=== PATIENT | female | born 1935 | race Caucasian/White ===

== ENCOUNTER 2019-07-21 07:36 | Emergency (ER) | payer OTHER ==
[2019-07-21 08:34] LABS: EOS % 2.8 % (0-4.5); HEMATOCRIT 37.6 % (32.4-45.2); HEMOGLOBIN 12.4 GM/dL (10.7-15.3); LYMPH % 28.7 % (8-40); MCH 29.7 pg (25.7-33.7); MEAN CELL VOLUME 89.8 fl (80-96); MEAN PLT VOLUME 7.7 fl (7.5-11.1); NEUT % 58.5 % (42.8-82.8); PLATELET COUNT 301 K/MM3 (134-434); RBC 4.19 M/mm3 (3.60-5.2); RDW 13.4 % (11.6-15.6); WHITE BLOOD COUNT 6.7 K/mm3 (4.0-10.0)
[2019-07-21 08:45] VITALS: BMI 25.2
[2019-07-21 09:05] LABS: ALBUMIN 3.2 g/dl (3.4-5.0); BILIRUBIN,TOTAL 0.4 mg/dL (0.2-1); BLOOD UREA NITROGEN 32.7 mg/dL (7-18); CALCIUM 9.2 mg/dL (8.5-10.1); CREATININE 1.3 mg/dL (0.55-1.3); POTASSIUM 4.5 mmol/L (3.5-5.1)
[2019-07-21] MEDS ORDERED: MAGNESIUM SULF 50% (8.12 MEQ/2 ML-1 GM VIAL) IVPB ONE (09:17)
[2019-07-21 09:19] LABS: INR 1.18 (0.83-1.09); PROTHROMBIN TIME (PATIENT) 13.9 SEC (9.7-13.0)
[2019-07-21] MEDS ORDERED: MAGNESIUM 1GM/D5W - 1 GM/100 ML IVPB IVPB ONE (09:23)
[2019-07-21] MEDS ORDERED: METOPROLOL TARTRATE 50 MG TABLET (FP) PO ONE (09:32)
[2019-07-21] MEDS ORDERED: METOPROLOL TARTRATE 50 MG TABLET (FP) ONE (09:36)
--- NOTE | 2019-07-21 10:07 | PDOC ---
History of Present Illness - General Chief Complaint: Chest Pain Stated Complaint: CHEST PAIN Time Seen by Provider: 07/21/19 08:12 History Source: Patient Exam Limitations: No Limitations - History of Present Illness Initial Comments: 07/21/19 10:07 84-year-old female with history of stents along with stroke presents the ED with complaints of right-sided throbbing pressure to her temporal and forehead last night at around 12 AM. Patient states was given 3 tablets which she was unsure of at around 1230 which was resolved her headache shortly thereafter. Patient states then about 2 hours after that developed midsternal chest pressure which she describes as someone sitting on her chest. Patient denied any shortness of breath nausea, dizziness, or sweating with episode. Patient also denied any visual changes with the onset of headache. Patient has no complaints presently and states was sent here by the [facility] for evaluation. Patient has no other complaints including fever, chills, abdominal pain, back pain, change in bowel pattern, or urinary complaints. Patient does state is at [facility] for rehab since she fell approximately 1 week ago and is there for short-term rehab Is this a multiple visit Asthma Patient?: No Timing/Duration: resolved prior to arrival Severity: moderate Associated Symptoms: reports: chest pain, headaches Past History - Travel Traveled outside of the country in the last 30 days: No Close contact w/someone who was outside of country & ill: No - Past Medical History Allergies/Adverse Reactions: Allergies Allergy/AdvReac Type Severity Reaction Status Date / Time No Known Allergies Allergy Verified 07/21/19 08:00 COPD: No CHF: No DVT: No - Immunization History Immunization Up to Date: Yes - Psycho Social/Smoking Cessation Hx Smoking History: Never smoked Information on smoking cessation initiated: No Hx Alcohol Use: No Drug/Substance Use Hx: No Patient Lives Alone: No Lives with/in: spouse/SO Review of Systems - Review of Systems Able to Perform ROS?: Yes Constitutional: No: Symptoms Reported HEENTM: No: Symptoms Reported Respiratory: No: Symptoms reported Cardiac (ROS): Yes: Chest Pain, Chest Tightness ABD/GI: No: Symptoms Reported : No: Symptoms Reported Musculoskeletal: No: Symptoms Reported Integumentary: No: Symptoms Reported Neurological: Yes: Headache. No: Numbness, Weakness Hematologic/Lymphatic: No: Symptoms Reported *Physical Exam - Vital Signs Last Vital Signs Temp Pulse Resp BP Pulse Ox 97.6 F 64 16 157/80 96 07/21/19 08:00 07/21/19 08:00 07/21/19 08:00 07/21/19 08:00 07/21/19 08:00 - Physical Exam General Appearance: Yes: Nourished, Appropriately Dressed. No: Apparent Distress HEENT: positive: EOMI, KIKA, TMs Normal, Pharynx Normal. negative: Pale Conjunctivae Neck: positive: Supple Respiratory/Chest: positive: Lungs Clear, Normal Breath Sounds. negative: Respiratory Distress, Accessory Muscle Use Cardiovascular: positive: Regular Rhythm, Regular Rate. negative: Murmur Gastrointestinal/Abdominal: positive: Soft. negative: Tenderness Integumentary: positive: Warm, Pale, Moist Neurologic: positive: Fully Oriented, Normal Mood/Affect, Motor Strength 5/5 ( moves all ext actively) Heart Score/ECG Review - ECG Intrepretation Rhythm: Regular Rhythm (Rate 66. Sinus rhythm with first-degree AV block.) ED Treatment Course - LABORATORY CBC & Chemistry Diagram: 07/21/19 08:27 07/21/19 08:27 - ADDITIONAL ORDERS Additional order review: Laboratory Results 07/21/19 07/21/19 07/21/19 08:27 08:27 08:27 PT with INR 13.90 H INR 1.18 H Sodium 138 Potassium 4.5 Chloride 106 Carbon Dioxide 28 Anion Gap 4 L BUN 32.7 H Creatinine 1.3 Est GFR (CKD-EPI)AfAm 43.32 Est GFR (CKD-EPI)NonAf 37.38 Random Glucose 168 H Calcium 9.2 Magnesium 1.6 L Total Bilirubin 0.4 AST 16 ALT 19 Alkaline Phosphatase 49 Creatine Kinase Troponin I Total Protein 7.0 Albumin 3.2 L 07/21/19 08:27 PT with INR INR Sodium Potassium Chloride Carbon Dioxide Anion Gap BUN Creatinine Est GFR (CKD-EPI)AfAm Est GFR (CKD-EPI)NonAf Random Glucose Calcium Magnesium Total Bilirubin AST ALT Alkaline Phosphatase Creatine Kinase 96 Troponin I < 0.02 Total Protein Albumin 07/21/19 08:27 RBC 4.19 MCV 89.8 MCHC 33.0 RDW 13.4 MPV 7.7 Neutrophils % 58.5 Lymphocytes % 28.7 Monocytes % 9.0 Eosinophils % 2.8 Basophils % 1.0 - RADIOLOGY Radiology Studies Ordered: Category Date Time Status HEAD CT WITHOUT CONTRAST [CT] Stat CT Scan 07/21/19 08:44 Taken - Medications Given in the ED: ED Medications Discontinued Medications Generic Name Dose Route Start Last Admin Trade Name Kamron PRN Reason Stop Dose Admin Magnesium Sulfate 1 gm 07/21/19 09:17 07/21/19 09:35 Magnesium Sulfate IVPB 07/21/19 09:18 1 gm ONCE ONE Administration Metoprolol Tartrate 50 mg 07/21/19 09:32 07/21/19 09:43 Lopressor - PO 07/21/19 09:33 50 mg ONCE ONE Administration Medical Decision Making - Medical Decision Making 07/21/19 09:14 Chief complaint: Patient with episodic right-sided headache at around 12 AM which resolved within the hour followed by midsternal chest pressure which also resolved within minutes. Patient with history of stroke along with hypertension and cardiac stent placement. Patient arrives asymptomatic and states was sent from [facility] for evaluation. Exam: No acute findings neuro exam normal vital signs stable EKG normal sinus rhythm with first-degree AV block Plan: Head CT, cardiac work-up, urine 07/21/19 10:16 Laboratory Tests 07/21/19 07/21/19 07/21/19 08:27 08:27 08:27 WBC 6.7 Hgb 12.4 Hct 37.6 Absolute Neuts (auto) 3.9 PT with INR INR Sodium 138 Potassium 4.5 Chloride 106 Carbon Dioxide 28 Anion Gap 4 L BUN 32.7 H Creatinine 1.3 Random Glucose 168 H Calcium 9.2 Magnesium Total Bilirubin 0.4 AST 16 ALT 19 Alkaline Phosphatase 49 Creatine Kinase 96 Troponin I < 0.02 Total Protein 7.0 Albumin 3.2 L 07/21/19 07/21/19 08:27 08:27 WBC Hgb Hct Absolute Neuts (auto) PT with INR 13.90 H INR 1.18 H Sodium Potassium Chloride Carbon Dioxide Anion Gap BUN Creatinine Random Glucose Calcium Magnesium 1.6 L Total Bilirubin AST ALT Alkaline Phosphatase Creatine Kinase Troponin I Total Protein Albumin Head CT negative for acute pathology. Patient remains asymptomatic. Patient given her 50 mg of Lopressor since she was due this morning for a.m. meds. Patient will have a BGM 1 hour after her breakfast and determine if she requires insulin since she is insulin-dependent diabetic. Patient refused chest x-ray and states additional blood work does not want and wants to sign out AMA since she does not feel the work-up is necessary despite her initial complaints. The patient is AO x3 and fully understands the possible risks of myocardial infarction. 07/21/19 11:43 Urine has been collected. Patient's repeat vital signs 117/57 heart rate 57, 02 saturation 96% with respiratory rate of 20. Patient signed AMA forms and family is here to bring patient back to [facility]. Will call the daughter Bibiana at [phone] with urine results if positive. Discharge - Discharge Information Problems reviewed: Yes Clinical Impression/Diagnosis: Headache, Chest pain Condition: Fair Disposition: AGAINST MEDICAL ADVICE - Follow up/Referral Referrals: Abby Bernal MD [Primary Care Provider] - - Patient Discharge Instructions Patient Printed Discharge Instructions: DI for Chest Pain Additional Instructions: Understand by signing your AMA forms you have assume responsibility of your health/ outcome. If you do have worsening or returning symptoms please go to the nearest ER including [facility] - Post Discharge Activity
[2019-07-21 10:48] VITALS: TEMP 98.2
[2019-07-21 11:48] VITALS: BP 117/57; PULSE 57
--- NOTE | 2019-07-21 12:42 | EKG ---
Test Reason : Blood Pressure : / mmHG Vent. Rate : 066 BPM Atrial Rate : 066 BPM P-R Int : 304 ms QRS Dur : 100 ms QT Int : 410 ms P-R-T Axes : 061 002 -48 degrees QTc Int : 429 ms SINUS RHYTHM WITH 1ST DEGREE A-V BLOCK SEPTAL INFARCT , AGE UNDETERMINED NONSPECIFIC ST ABNORMALITY ABNORMAL ECG NO PREVIOUS ECGS AVAILABLE Confirmed by DALIA PEPE MD ([id number]) on 07/21/2019 12:41:43 PM Referred By: Confirmed By:DALIA PEPE MD
[2019-07-21 12:56] LABS: URINE APPEARANCE CLEAR; URINE BILIRUBIN NEGATIVE (NEGATIVE); URINE COLOR YELLOW; URINE GLUCOSE (UA) NEGATIVE (NEGATIVE); URINE KETONE NEGATIVE (NEGATIVE)
[2019-07-21 12:57] LABS: URINE LEUK ESTERASE NEGATIVE (NEGATIVE); URINE NITRITE NEGATIVE (NEGATIVE); URINE PROTEIN NEGATIVE (NEGATIVE); URINE UROBILINOGEN 0.2 mg/dL (0.2-1.0)
== END 2019-07-21 11:54 | disposition left against medical advice (07) ==
LOC: JER 07:36
PROC: 3E033GC Introduction of Other Therapeutic Substance into Peripheral Vein, Percutaneous Approach (ICD-10-PCS; principal; 2019-07-21)
DX: R07.9 Chest pain, unspecified (principal); R51 Headache; Z95.5 Presence of coronary angioplasty implant and graft
CPT/HCPCS: 36415; 70450-TC; 80053; 81003; 82550; 82962; 83735; 84484; 85025; 85610; 93005; 93010; 96374; 99283-25

== ENCOUNTER 2019-09-10 13:01 | Emergency (ER) | payer OTHER ==
[2019-09-10 13:15] VITALS: BMI 30.6
--- NOTE | 2019-09-10 13:18 | PDOC ---
History of Present Illness - General Stated Complaint: SYNCOPY Time Seen by Provider: 09/10/19 13:17 History Source: Patient, Family - History of Present Illness Initial Comments: 09/10/19 13:45 Patient is an 84 year old female with PMH of CABG x3, heart valve replacement x2 , HTN, IDDM, TIA, rheumatic fever who presents from [facility] for AMS. Pt's son-in-law is at bedside to assist with history. [facility]. Workup after fall was negative. At baseline she has mild dementia but is alert and oriented, able to form complete sentences, ambulates with walker independently. Over the past week, pt has had several episodes of AMS where she becomes very lethargic, aphasic, and despondent. They last for varying amounts of time, but she returns to normal after a short period and does not recall these events. This morning, pt was doing well, at her normal baseline, ate breakfast and took her medications including her insulin. Around 9 :30am, she had an episode where she was completely aphasic, awake but unresponsive, her eyes drifted upward. Blood glucose was taken and was 350, BP was elevated in 180s. She was immediately brought to the ER for evaluation. In the ER, pt is awake and oriented, at her baseline. Pt feels well with no complaints, ROS negative. She has no recollection of the event this morning. 09/10/19 19:12 Past History - Past Medical History Allergies/Adverse Reactions: Allergies Allergy/AdvReac Type Severity Reaction Status Date / Time chlorpromazine Allergy Verified 09/10/19 13:15 prochlorperazine Allergy Verified 09/10/19 13:15 Home Medications: Ambulatory Orders Aspirin [ASA -] 81 mg PO DAILY 09/10/19 Atorvastatin Ca [Lipitor] 20 mg PO HS 09/10/19 Insulin Glargine,Hum.rec.anlog [Basaglar Kwikpen U-100] 27 unit SQ HS 09/10/19 Insulin Lispro 6 unit SQ TIDCM 09/10/19 Levothyroxine Sodium [Levoxyl] 112 mcg PO DAILY 09/10/19 Lidocaine [Aspercreme] 1 each TP DAILY 09/10/19 Magnesium Chloride 64 mg PO DAILY 12/08/19 Anemia: Yes COPD: No CHF: No DVT: No Diabetes: Yes Disorders: Yes (chronic kidney stage 4) Seizures: Yes (hypo) Other medical history: gout - Surgical History Cardiac Surgery: Yes (valve replacement) - Immunization History Immunization Up to Date: Yes - Psycho Social/Smoking Cessation Hx Smoking History: Never smoked Have you smoked in the past 12 months: No Information on smoking cessation initiated: No Hx Alcohol Use: No Drug/Substance Use Hx: No Review of Systems - Review of Systems Able to Perform ROS?: Yes Constitutional: No: Symptoms Reported, See HPI, Chills, Diaphoresis, Fever, Loss of Appetite, Malaise, Night Sweats, Weakness, Weight Stable, Unintentional Wgt. Loss, Unexplained wgt Loss, Other HEENTM: No: Symptoms Reported, See HPI, Eye Pain, Blurred Vision, Tearing, Recent change in vision, Double Vision, Cataracts, Ear Pain, Ocular Prothesis, Ear Discharge, Nose Pain, Nose Congestion, Tinnitus, Nose Bleeding, Hearing Loss , Throat Pain, Throat Swelling, Mouth Pain, Dental Problems, Difficulty Swallowing, Mouth Swelling, Other Respiratory: No: Symptoms reported, See HPI, Cough, Orthopnea, Shortness of Breath, SOB with Exertion, SOB at Rest, Stridor, Wheezing, Productive cough, Hemoptysis, Other Cardiac (ROS): No: Symptoms Reported, See HPI, Chest Pain, Edema, Irregular Heart Rate, Lightheadedness, Palpitations, Syncope, Chest Tightness, Other ABD/GI: No: Symptoms Reported, See HPI, Abdominal Distended, Abd. Pain w/ defecation, Blood Streaked Bowels, Constipated, Diarrhea, Difficulty Swallowing , Nausea, Poor Appetite, Poor Fluid Intake, Rectal Bleeding, Vomiting, Indigestion, Abdominal cramping, Tarry Stools, Other Musculoskeletal: No: Symptoms Reported, See HPI, Back Pain, Gout, Joint Pain, Joint Swelling, Muscle Pain, Muscle Weakness, Neck Pain, Joint Stiffness, Other Neurological: No: Symptoms reported, See HPI, Headache, Numbness, Paresthesia, Pre-Existing Deficit, Seizure, Tingling, Tremors, Weakness, Unsteady Gait, Ataxia, Dizziness, Other *Physical Exam - Vital Signs Last Vital Signs Temp Pulse Resp BP Pulse Ox 97.4 F L 59 L 18 192/62 H 99 09/10/19 13:07 09/10/19 13:07 09/10/19 13:07 09/10/19 13:07 09/10/19 13:07 - Physical Exam General Appearance: Yes: Nourished, Obese. No: Apparent Distress HEENT: positive: EOMI, KIKA, Normal ENT Inspection, Pharynx Normal, Pale Conjunctivae Neck: positive: Normal Thyroid, Supple Respiratory/Chest: positive: Lungs Clear, Normal Breath Sounds. negative: Chest Tender, Respiratory Distress, Crackles, Wheezing Cardiovascular: positive: Regular Rhythm, Regular Rate, S1, S2. negative: Edema , JVD, Murmur Vascular Pulses: Dorsalis-Pedis (R): 2+, Doralis-Pedis (L): 2+ Extremity: positive: Normal Capillary Refill, Normal Inspection, Normal Range of Motion, Swelling (1+ pitting edema). negative: Erythema Integumentary: positive: Normal Color Neurologic: positive: draw string knotter II-XII NML intact, Alert, Normal Mood/Affect, Normal Response, Motor Strength 02/05 ED Treatment Course - LABORATORY CBC & Chemistry Diagram: 09/10/19 13:56 09/10/19 13:56 Medical Decision Making - Medical Decision Making 09/10/19 14:00 Infectious and metabolic workup for assessment of AMS: CBC, CMP, UA, CXR, head CT 09/10/19 19:13 CXR: no acute pathology CT head: no acute pathology Lab results reviewed, negative >> Consulted Dr. Elaine and discussed case. Plan to admit patient for further neurologic workup and EEG in am. Patient chose to leave AMA after all risks and concerns were discussed. Discharge - Discharge Information Problems reviewed: Yes Clinical Impression/Diagnosis: Altered mental status Qualifiers: Altered mental status type: unspecified Qualified Code(s): R41.82 - Altered mental status, unspecified Disposition: AGAINST MEDICAL ADVICE - Admission No - Follow up/Referral Referrals: Harvinder Holliday [Primary Care Provider] - - Patient Discharge Instructions Additional Instructions: You were evaluated in the ER for altered mental status and confusion. You were advised to be admitted for further evaluation of your mental status and workup for possible seizures. You chose to leave against our medical advice. - Post Discharge Activity
--- NOTE | 2019-09-10 13:35 | PDOC ---
Attending Attestation - Resident Resident Name: Funmilayo Arreguin - HPI HPI: 09/10/19 14:51 Pt presents to the Ed complaining of several episodes of decreased responsiveness. Today, her son in law observed her to become unresponsive to voice, with eyes "rolling back" in her head and decreased postural tone. Patient was unable to respond to questioning at all. No loss of bowel or bladder control, no tonic clonic movements, no tongue biting. Son in law also reports that the patient has been increasingly tired and confused during her stay in rehab. Patient is oriented x 2 on my exam, and is quite confused and unable to give history of recent events. As per son in law, this is not her baseline. Denies fevers, nausea or vomiting or pain. Denies chest pain or shortness of breath. 09/10/19 15:04 - Physicial Exam PE: 09/10/19 15:04 Agree with resident exam. PAtient is alert and oriented and in no acute distress. Oriented x 2. CN grossly intact. Speech is fluent and clear, but patient is not appropriately answering questions. 09/10/19 15:48 - Medical Decision Making 09/10/19 15:49 Pt presents to the ED with altered mental status. Initial differential included syncope, seizure, infection, electrolyte disturbance, delirium from other causes. Labs and CT head have no acute findings. Plan was to admit patient for altered mental status work up. 09/10/19 15:51 Called to the bedside by son in law to reassess patient because he feels that mental status is improving. Patient is alert and oriented x 3 and is refusing admission. I have had a lengthy discussion with the patient and her son in law about the risks of leaving against medical advice. The patient understands that her altered mental status may have been caused by seizures, intracranial lesions not detected on the CT or other reversible causes. She understands that if she returns to rehab tonight, she may have recurrent episodes of altered mental status leading to permanent disability or . The patient has a strong desire to be with her , who is currently in the same rehab. She stated "If I , I ", and does not want to be admitted. Will discharge home AMA.
[2019-09-10 14:20] LABS: BASO % 1.1 % (0-2.0); EOS % 2.5 % (0-4.5); HEMATOCRIT 40.7 % (32.4-45.2); HEMOGLOBIN 13.6 GM/dL (10.7-15.3); LYMPH % 26.6 % (8-40); MCH 29.9 pg (25.7-33.7); MCHC 33.4 g/dl (32.0-36.0); MEAN CELL VOLUME 89.8 fl (80-96); MEAN PLT VOLUME 8.1 fl (7.5-11.1); MONO % 9.9 % (3.8-10.2); NEUT % 59.9 % (42.8-82.8); PLATELET COUNT 250 K/MM3 (134-434); RBC 4.54 M/mm3 (3.60-5.2); RDW 13.7 % (11.6-15.6); WHITE BLOOD COUNT 7.4 K/mm3 (4.0-10.0)
[2019-09-10 14:29] LABS: EPI CELLS 2.4 /HPF (0-5/HPF); HYALINE CASTS 3 /lpf (0-8); PH,URINE 5.5 (5.0-8.0); URINE APPEARANCE CLEAR; URINE BACTERIA 32.7 /hpf (NEGATIVE); URINE BILIRUBIN NEGATIVE (NEGATIVE); URINE COLOR YELLOW; URINE GLUCOSE (UA) 2+ (NEGATIVE); URINE KETONE NEGATIVE (NEGATIVE); URINE LEUK ESTERASE NEGATIVE (NEGATIVE); URINE NITRITE NEGATIVE (NEGATIVE); URINE PROTEIN 2+ (NEGATIVE); URINE RBC 1 /hpf (0-4); URINE UROBILINOGEN 0.2 mg/dL (0.2-1.0); URINE WBC 1 /hpf (0-5)
[2019-09-10 14:49] LABS: ALBUMIN 3.5 g/dl (3.4-5.0); ALK PHOS 79 U/L (45-117); ANION GAP 6 MMOL/L (8-16); BILIRUBIN,TOTAL 0.6 mg/dL (0.2-1); BLOOD UREA NITROGEN 28.6 mg/dL (7-18); CALCIUM 9.4 mg/dL (8.5-10.1); CHLORIDE 100 mmol/L (98-107); CO2 28 mmol/L (21-32); CREATININE 1.1 mg/dL (0.55-1.3); GLUCOSE,RANDOM 277 mg/dL (74-106); POTASSIUM 4.7 mmol/L (3.5-5.1); SGOT/AST 20 U/L (15-37); SGPT/ALT 32 U/L (13-61); SODIUM 135 mmol/L (136-145); TOT PROT 7.6 g/dl (6.4-8.2)
[2019-09-10 15:16] LABS: MAGNESIUM 1.5 mg/dL (1.8-2.4); PHOSPHOROUS 3.8 mg/dL (2.5-4.9)
[2019-09-10 17:35] VITALS: BP 145/67; PULSE 66; TEMP 97.9
--- NOTE | 2019-09-11 13:40 | EKG ---
Test Reason : Blood Pressure : / mmHG Vent. Rate : 059 BPM Atrial Rate : 059 BPM P-R Int : 284 ms QRS Dur : 098 ms QT Int : 440 ms P-R-T Axes : 015 -10 -58 degrees QTc Int : 435 ms SINUS BRADYCARDIA WITH 1ST DEGREE A-V BLOCK ANTEROSEPTAL INFARCT (CITED ON OR BEFORE 21-JUL-2019) ABNORMAL ECG WHEN COMPARED WITH ECG OF 21-JUL-2019 07:47, QUESTIONABLE CHANGE IN INITIAL FORCES OF ANTERIOR LEADS Confirmed by JASVIR GARCIA MD ([id number]) on 09/11/2019 1:40:04 PM Referred By: Confirmed By:JASVIR GARCIA MD
== END 2019-09-10 17:35 | disposition left against medical advice (07) ==
LOC: JER 13:01
DX: R41.82 Altered mental status, unspecified (principal); F03.90 Unspecified dementia, unspecified severity, without behavioral disturbance, psychotic disturbance, mood disturbance, and anxiety; Z95.1 Presence of aortocoronary bypass graft; I10 Essential (primary) hypertension; E11.9 Type 2 diabetes mellitus without complications; Z86.73 Personal history of transient ischemic attack (TIA), and cerebral infarction without residual deficits; I00 Rheumatic fever without heart involvement; Z88.8 Allergy status to other drugs, medicaments and biological substances
CPT/HCPCS: 36415; 70450-TC; 71045-TC-FY; 80053; 81003; 82550; 83735; 84100; 84484; 85025; 93005; 93010; 99285-25